=== PATIENT | female | born 1985 | race Hispanic/Latino ===

== ENCOUNTER 2021-02-06 14:52 | Inpatient (IN) | payer OTHER, SELFPAY ==
[2021-02-06] VITALS (99 sets, daily range): BP systolic 98–151; BP diastolic 67–106; PULSE 63–170; RESP 18–20; TEMP 37.2–37.9; O2SAT 88–100; BMI 23.8
[2021-02-06] MEDS: LACTATED RINGERS 1,000 ML 125 ML IV CONT ×2 (17:45→18:31)
[2021-02-06 17:49] LABS: Basophils Percent Auto 0.3 % (0.2-1.2); Eosinophils Percent Auto 0.1 % (0-4.4); Hematocrit 40.1 % (37.0-47.0); Immature Granulocyte Absolute 0.07 K/mm3 (0.00-0.031); Immature Granulocyte Percent A 0.6 % (0-0.5); Lymphocytes Percent Auto 12.9 % (18.3-44.2); Mean Corpuscular HGB Conc 34.9 g/dl (32-36); Mean Corpuscular Hemoglobin 31.5 pg (26-34); Mean Corpuscular Volume 90.3 fl (80-100); Mean Platelet Volume 9.8 fl (7.4-10.4); Monocytes Absolute Auto 0.6 K/mm3 (0.1-0.6); Monocytes Percent Auto 5.2 % (2.6-8.5); Neutrophils Absolute Auto 9.4 K/mm3 (1.3-6.7); Neutrophils Percent Auto 80.9 % (45.5-73.1); Platelet Count Result 321 k/mm3 (150-375); Red Blood Count 4.44 M/mm3 (4.2-5.4); Red Cell Distribution Width 12.3 % (11.5-14.5); White Blood Count 11.6 K/mm3 (4.5-10.0)
--- NOTE | 2021-02-06 18:11 | LDADM ---
This patient, Nickie Peña, was admitted to Labor/Delivery/Recovery 105 on 02/06/21 at 14:52. Plans for labor, pain management and were discussed with patient. Patient/family oriented to hospital policies and general routines including ID bracelet, bed and alarms, visiting hours, pain management, procedures, bathroom and other care routines, personal items, smoking policy, room service/diet and guest tray routines, security routines, and visiting hours. Patient/Family are encouraged to report perceived risks to care and to ask questions if they do not understand what they are told or what they should do. See OBIX for further documentation.
--- NOTE | 2021-02-06 18:12 | WPDANESEPP ---
Anes - Eval Pre Procedure Procedure: labor epidural Date/Time: 02/06/21 18:12 Surgeon: jaylin Preop Diagnosis: pain during labor Pre Op Diagnosis: Contractions Patient Data Age: 35 Gender: F Height: Weight: Last Vital Signs Pulse 109 H 02/06/21 18:10 BP 151/91 H 02/06/21 18:10 Allergies Allergy/AdvReac Type Severity Reaction Status Date / Time No Known Allergies Allergy Verified 01/26/21 15:33 Home Medications Medication Instructions Recorded Confirmed Type PNV cmb#95-ferrous fumarate-FA 1 tablet PO DAILY 01/26/21 01/26/21 History [] aspirin 81 mg PO DAILY 01/26/21 01/26/21 History ferrous sulfate [Iron (ferrous 325 mg PO BID 01/26/21 01/26/21 History sulfate)] Laboratory Tests 02/06/21 02/06/21 02/06/21 17:31 17:31 17:31 WBC 11.6 K/mm3 H K/mm3 (4.5-10.0) RBC 4.44 M/mm3 M/mm3 (4.2-5.4) Hgb 14.0 g/dL g/dL (12.0-15.0) Hct 40.1 % % (37.0-47.0) MCV 90.3 fl fl (80-100) MCH 31.5 pg pg (26-34) MCHC 34.9 g/dl g/dl (32-36) RDW 12.3 % % (11.5-14.5) Plt Count 321 k/mm3 k/mm3 (150-375) MPV 9.8 fl fl (7.4-10.4) Immature Gran % (Auto) 0.6 % H % (0-0.5) Neut % (Auto) 80.9 % H % (45.5-73.1) Lymph % (Auto) 12.9 % L % (18.3-44.2) Addison % (Auto) 5.2 % % (2.6-8.5) Eos % (Auto) 0.1 % % (0-4.4) Baso % (Auto) 0.3 % % (0.2-1.2) Lymph # (Auto) 1.50 K/mm3 K/mm3 (0.9-3.2) Addison # (Auto) 0.6 K/mm3 K/mm3 (0.1-0.6) Eos # (Auto) 0.0 K/mm3 K/mm3 (0-0.3) Baso # (Auto) 0.0 K/mm3 K/mm3 (0.0-0.1) Abs Immat Gran (auto) 0.07 K/mm3 H K/mm3 (0.00-0.031) Absolute Neuts (auto) 9.4 K/mm3 H K/mm3 (1.3-6.7) Absolute Nucleated RBC 0.0 K/mm3 K/mm3 (0.0-0.012) Nucleated RBC % 0.0 % % (0.0-0.2) RPR Pending HIV 1&2 Ab/P24 Ag 4thGn Pending Patient hx anesthesia problems: none Family hx anesthesia problems: none Results Review: All pre-operative results and documents have been reviewed as part of the pre-operative evaluation. [facility] Past Medical History Medical History (Updated 02/06/21 @ 18:12 by Anya Nazario CRNA) Intrauterine Family History Family History (Updated 01/26/21 @ 15:33 by Grzegorz Jung RN) Other Hypertension Social History Social History Substance use: never Spiritual care concerns: No Exam Day of Procedure 02/06/21 18:12
--- NOTE | 2021-02-06 18:17 | PC.NURSE ---
170- called,informed pt has had small cervical change and has strong frequent contractions. Orders received to admit as inpatient and start pitocin in 2 hours if no cervical change noted.
--- NOTE | 2021-02-06 18:18 | PC.NURSE ---
1545- on unit,informed pt came in for c/o contractions. SVE was 3cm/90/-1 with strong contractions. Orders received to watch for a couple hours.
[2021-02-06 19:02] LABS: HIV 1/2 Ab P24 Ag Result Negative (Negative)
[2021-02-06] MEDS: OXYTOCIN 30 UNITS/NS 500 ML 30 UNITS/500 ML BAG 999 UNITS IV CONT (22:53)
--- NOTE | 2021-02-06 23:15 | WPDOBADMIT ---
Obstetrics - Admit Note Admission Note: record reviewed. No pertinent additions to the history and/or any subsequent changes in the physical findings that are not consistent with the expected course of the were found. Additions to the history and/or subsequent changes in the physical findings follow. None.Here in active labor. Now c/p
--- NOTE | 2021-02-06 23:15 | PM.OBPRVD ---
OB - Delivery Note Procedure Delivery date: 02/06/21 Procedure: Intrapartal events: None Induction method: none Delivery monitor: none, external FHT and external uterine Route of delivery: Laceration Description: Periurethral (bilateral) and Perineal - 2nd Degree Delivery repair: vicryl (3-0 ) Specimen: Yes (placenta) Quantitative Blood Loss (ml): 325 Anesthesia type: Epidural Disposition: floor Baby Date of : 02/06/21 Weeks of gestation at delivery: 37 gender: Male Weight (pounds): 5 Weight (ounces): 12 presentation: vertex position: Right Occiput Anterior Placenta delivery description: Spontaneous cord vessel description: 3 Vessels (short cord) score one minute: 8 score five minutes: 9
[2021-02-06] MEDS: OXYTOCIN 30 UNITS/NS 500 ML 30 UNITS/500 ML BAG 125 UNITS IV CONT (23:29)
[2021-02-07] VITALS (31 sets, daily range): BP systolic 111–136; BP diastolic 74–92; PULSE 52–108; RESP 16–18; TEMP 36.7–37; O2SAT 79–100
[2021-02-07 05:19] LABS: Hematocrit 31.6 % (37.0-47.0); Hemoglobin 10.7 g/dL (12.0-15.0)
[2021-02-07] MEDS: DOCUSATE SODIUM 100 MG CAPSULE PO (09:10)
[2021-02-07] MEDS: MULTIVIT/MIN/PREN/FOL AC/IRON TABLET 1 TAB PO (09:10)
[2021-02-07] MEDS: ACETAMINOPHEN 325 MG TABLET 650 MG PO (09:10)
--- NOTE | 2021-02-07 10:11 | WPDANLDPN2 ---
Anes-Prog Note L&D Date/Time: 02/07/21 10:11 Comfortable throughout: labor and delivery Neuraxial method: epidural Epidural/Spinal procedure site: clean & non-tender Neuro status: Neuro function grossly intact. Cardiovascular status: normal Respiratory status: normal Airway patency: baseline Mental status: baseline Post-Op hydration status: normal Vital Signs: Last Vital Signs Temp 37.0 C 02/07/21 08:10 Pulse 89 02/07/21 08:10 Resp 16 02/07/21 08:10 BP 115/75 02/07/21 08:10 Pulse Ox 100 02/07/21 08:10 Pain score (VAS): 0 I/O: Intake & Output 02/06/21 02/07/21 02/07/21 23:59 07:59 15:59 Intake Total 2500 500 Output Total 925 130 Balance 1575 370 Post-procedural complaints: none Patient feedback: Patient satisfied with anesthetic care.
--- NOTE | 2021-02-07 12:15 | PC.NURSE ---
Consult with pt., mother wishes to pump and bottle feed. Mother has her breast pump from home and wishes instructions. Instructions given on breast pump care and usage, pumping schedule, nipple care, and collection and storage of breast milk. Encouraged [id number], breast massage and manual expression to stimulate supply. Assessed patient for correct flange size, placement and draw. Patient verbalizes and demonstrates understanding of instructions. Discussed colostrum vs milk supply and mother may not see more than a few drops the first few days, milk should transition in by day 3 and she may see more volume pumped per session.
[2021-02-07 13:06] LABS: Rapid Plasma Reagin Non-Reactive (NonReactive)
--- NOTE | 2021-02-08 03:03 | PM.OBPNVD ---
OB - PN: Subj Subjective Date/time seen: 02/07/21 12:23 ding well no complaints OB - PN: Obj Data Labs CBC & Chem 7: 02/07/21 05:06 Labs: Laboratory Results - last 24 hr 02/06/21 02/07/21 17:31 05:06 Hgb 10.7 L D Hct 31.6 L RPR Non-reactive OB - PN A/P Assessment and Plan (1) (normal spontaneous vaginal delivery): Code(s): O80 - Encounter for full-term uncomplicated delivery Status: Acute Assessment and Plan: continue with pp care. Time Spent With Patient Time: Total time spent is greater than 50% in coordination of care (as documented) at patient's floor/unit and/or counseling patient: Exam Narrative: ffbelow umbilicus
--- NOTE | 2021-02-08 07:43 | PM.OBPNVD ---
OB - PN: Subj Subjective Date/time seen: 02/08/21 07:43 Patient comments: no complaints baby status: doing well and nursing well OB - PN: Obj Data Labs CBC & Chem 7: 02/07/21 05:06 Labs: Laboratory Results - last 24 hr 02/06/21 17:31 RPR Non-reactive OB - PN A/P Plan day: 2 Plan: routine care, discharge home, follow up 6 weeks and other (plans condoms) Time Spent With Patient Time: Total time spent is greater than 50% in coordination of care (as documented) at patient's floor/unit and/or counseling patient: Exam : Bimanual exam- vagina & uterus: other (Uterus firm, nt @U)
[2021-02-08 08:00] VITALS: BP 119/81; PULSE 75; RESP 18; TEMP 36.3; O2SAT 99
[2021-02-08] MEDS: DOCUSATE SODIUM 100 MG CAPSULE PO (08:13)
[2021-02-08] MEDS: LANOLIN (LANSINOH) 7.5 GM CREAM 1 APPLIC TOPICAL (08:13)
[2021-02-08] MEDS: MULTIVIT/MIN/PREN/FOL AC/IRON TABLET 1 TAB PO (08:13)
--- NOTE | 2021-02-08 09:15 | PC.NURSE ---
Patient viewed the discharge video Mother & Baby Care, The First Two Weeks . Patient was given the opportunity and encouraged to ask questions. Patient verbalized understanding of information shared and has been given the mother/baby guide for home reference.
--- NOTE | 2021-02-08 09:16 | PC.NURSE ---
Self care and infant care discharge instructions given including follow up visit date and time. Parents verbalized understanding.No questions or concerns voiced. FOB at side.
[2021-02-09 09:45] VITALS: BP 127/81; PULSE 98; RESP 20; TEMP 36.9; O2SAT 99
--- NOTE | 2021-02-12 10:17 | PM.OBDSVD ---
DS: Admitting Diagnosis Discharge Date 02/08/21 Admitting Diagnosis Labor DS: Discharge Diagnosis Discharge Diagnosis (1) (normal spontaneous vaginal delivery): Code(s): O80 - Encounter for full-term uncomplicated delivery Status: Acute OB - DS: Summary OB Procedures : Ultrasound OB Procedures Intrapartum: Spontaneous Vag Delivery OB Procedures: : None Peripartum Data Infant Delivery Method: Natural Vaginal Laceration Description: Perineal - 2nd Degree complications: none Status at Discharge Functional status at discharge: independent ambulation Overall status at discharge: patient is progressing back to baseline Time Spent with Patient Time attestation: Total time spent providing and/or coordinating discharge services: DS: Data Data Completed and Pending Pending studies at discharge: Pending at discharge 02/06/21 23:38 Surgical [PTH] Routine Discharge Plan Discharge Attending physician on discharge: Shayy Trejo Consulting providers: Wilfredo Reilly Discharging Clinician: Shayy Trejo Anticipated Discharge Date/Time: 02/08/21 23:17 Patient Disposition: Home, Self-Care Activity: may shower and pelvic rest Diet: regular Discharge Instructions: Education: Mom and Baby Guide Given to: Mother Follow-Up: Call your delivering provider's office for an appointment to be seen in: 6 Weeks Mom and baby [facility] for the follow-up appointment. Appointment Date/Time: Tuesday, February 09, 2021 at 10:00 am What to expect at your follow-up visit: Blood Pressure Check Physical Assessment Call [phone] if you are unable to keep your appointment time. BREAST CARE: * Wear a snug supportive bra. * For engorgement discomfort: Breast Feeding: * Apply warm moist washcloths * Express milk as needed to relieve engorgement * Wear loose clothing Bottle Feeding: * May apply ice packs * For sore nipples: * Identify correct latch-on * Apply warm moist washcloths before and after nursing * Air dry nipples after nursing * May apply Lansinoh cream to nipples EPISIOTOMY/PERINEAL CARE: * Until bleeding stops, use your lucrecia bottle after urinating * Change your pad frequently throughout the day * You may take sitz baths several times a day (fill your bathtub with warm water and soak for 20 minutes.) Do NOT bathe in the water * No tub baths until seen by your physician - You may shower ACTIVITY: * Rest as much as possible. * Do not exercise or lift anything heavier than your baby (such as laundry or other children.) * Avoid stairs or driving as much as possible. * Do not put anything into the vagina. No douching, tampons, or sexual activity until seen by physician. NOTIFY PHYSICIAN IF YOU HAVE ANY QUESTIONS OR IF ANY OF THE FOLLOWING SYMPTOMS OCCUR: * If your episiotomy becomes red, swollen, or more painful than what you have experienced in the hospital. * If your vaginal bleeding becomes foul smelling. * If your vaginal bleeding becomes more heavy than a period or if your bleeding changes from pink to bright red. However, you may pass an occasional walnut-sized clot once or twice for the first week . * If you experience a sharp, shooting pain in you calves. * If you discover a hard, reddened area on your breast or if you experience flu-like symptoms. DIET: * Eat regular, well-balanced meals. * Drink plenty of fluids daily. If , drink to thirst. Patient Instructions: Antibiotic Form Stand Alone Forms: General Discharge Information Follow-up/Referrals: Shayy Trejo MD [Physician] - 6 Weeks Discharge Medications: Continued ferrous sulfate [Iron (ferrous sulfate)] 325 mg (65 mg iron) Tablet 325 mg PO BID RF: 0 PNV cmb#95-ferrous fumarate-FA []
== END 2021-02-08 11:50 | disposition home or self-care (01) | DRG 807 ==
LOC: ANHLDR 23:18 → ANHOB2 02-07 02:11
PROVIDERS: Admitting Provider Obstetrics & Gynecology Gynecology; Visit Provider Obstetrics & Gynecology Gynecology
DX: O69.3XX0 Labor and delivery complicated by short cord, not applicable or unspecified (principal); Z37.0 Single live birth; Z3A.37 37 weeks gestation of pregnancy; O70.1 Second degree perineal laceration during delivery; O71.82 Other specified trauma to perineum and vulva
CPT/HCPCS: 36415; 85014; 85018; 85025; 86592; 86703; 86850; 86900; 86901; 88307; A9270; G0432; J2590; J2795; J7120